=== PATIENT | male | born 1975 | race Caucasian/White ===

== ENCOUNTER 2017-08-01 12:50 | Emergency (ER) | payer BC ==
--- NOTE | 2017-08-01 13:00 | EDM.PDOC ---
ED HPI GENERAL MEDICAL PROBLEM - General Chief Complaint: ENT Problem Stated Complaint: TOOTH PAIN Time Seen by Provider: 08/01/17 12:56 Source of Information: Reports: Patient History Limitations: Reports: No Limitations - History of Present Illness INITIAL COMMENTS - FREE TEXT/NARRATIVE: HISTORY AND PHYSICAL: History of present illness: Patient is a 42-year-old male who presents to the emergency room today with complaints of left lower dental pain. 2 days ago he did have a tooth that broke to the posterior molar and since that time has been using [id number] dental putty to fill in the area. Today he tried to find a local dentist for treatment, but reports the facilities are closed. Has been using over-the- counter Tylenol and ibuprofen without any relief. Reports he does feel "feverish " but has not recorded his temperature at home. Review of systems: As per history of present illness and below otherwise all systems reviewed and negative. Past medical history: As per history of present illness and as reviewed below otherwise noncontributory. Surgical history: As per history of present illness and as reviewed below otherwise noncontributory. Social history: No reported history of drug or alcohol abuse. Family history: As per history of present illness and as reviewed below otherwise noncontributory. Physical exam: General: Well-developed and well-nourished 42-year-old male. Alert and oriented. Nontoxic appearing and in no acute distress. HEENT: Atraumatic, normocephalic, pupils reactive, negative for conjunctival pallor or scleral icterus, mucous membranes moist, throat clear, neck supple, nontender, trachea midline. Tooth #17 is cracked with OTC puddy noted, soft tissue swelling and erythema noted around the gumline. Multiple dental caries and missing teeth. Lungs: Clear to auscultation, breath sounds equal bilaterally, chest nontender. Heart: S1S2, regular rate and rhythm Abdomen: Soft, nondistended, nontender. Pelvis: Stable nontender. Genitourinary: Deferred. Rectal: Deferred. Extremities: Atraumatic, moves all per self. Neurovascular unremarkable. Neuro: Awake, alert, oriented. Cranial nerves II through XII unremarkable. Cerebellum unremarkable. Motor and sensory unremarkable throughout. Exam nonfocal. Will treat with Augmentin BID x 7 days. Tramadol (#20- NRF) for pain. Discussed follow-up with a dentist. Patient voices understanding and is agreeable to plan of care. He denies any further questions at this time. Diagnostics: [] Therapeutics: Hurricane/viscous lidocaine topical (Tooth Balls) Impression: Dentalgia Cracked tooth Plan: 1. Take the antibiotic as prescribed. The pain medication may cause drowsiness a do not take it while driving or needing to be functioning at work. Please do not take over the recommended amount of ibuprofen as this may cause stomach upset/ulcers. 2. Use the tooth balls that we have provided for you as directed. 3. As we discussed follow-up with the dentist next week. Return to the ED as needed and as discussed. Definitive disposition and diagnosis as appropriate pending reevaluation and review of above. Duration: Day(s): Location: Reports: Face left lower dental Pain Score (Numeric/FACES): 10 - Related Data Allergies Allergy/AdvReac Type Severity Reaction Status Date / Time No Known Allergies Allergy Verified 08/01/17 12:59 Home Meds: Home Meds . [No Known Home Meds] 08/01/17 [History] ED ROS ENT - Review of Systems Review Of Systems: ROS reveals no pertinent complaints other than HPI. ED EXAM, ENT - Physical Exam Exam: See Below (See dictation) Course - Vital Signs Last Recorded V/S: Last Vital Signs Temp 97.6 F 08/01/17 12:59 Pulse 76 08/01/17 12:59 Resp 18 08/01/17 12:59 BP 130/80 08/01/17 12:59 Pulse Ox 97 08/01/17 12:59 - Orders/Labs/Meds Orders: Active Orders 24 hr Category Date Time Status Benzocaine [Hurricaine One 20%] Med 08/01/17 13:27 Once 2 each MUCMEM ONETIME ONE Lidocaine 2% [Xylocaine 2% Viscous] Med 08/01/17 13:27 Once 15 ml PO ONETIME ONE Meds: Medications Discontinued Medications Generic Name Dose Route Start Last Admin Trade Name Freq PRN Reason Stop Dose Admin Benzocaine 2 each 08/01/17 13:27 Hurricaine One 20% MUCMEM 08/01/17 13:28 ONETIME ONE Lidocaine HCl 15 ml 08/01/17 13:27 Xylocaine 2% Viscous PO 08/01/17 13:28 ONETIME ONE Departure - Departure Time of Disposition: 13:34 Disposition: Home, Self-Care 01 Clinical Impression: Dentalgia - Discharge Information Referrals: PCP,None [Primary Care Provider] - Forms: ED Department Discharge Additional Instructions: My general discharge The following information is given to patients seen in the emergency department who are being discharged to home. This information is to outline your options for follow-up care. We provide all patients seen in our emergency department with a follow-up referral. The need for follow-up, as well as the timing and circumstances, are variable depending upon the specifics of your emergency department visit. If you don't have a primary care physician on staff, we will provide you with a referral. We always advise you to contact your personal physician following an emergency department visit to inform them of the circumstance of the visit and for follow-up with them and/or the need for any referrals to a consulting specialist. The emergency department will also refer you to a specialist when appropriate. This referral assures that you have the opportunity for follow-up care with a specialist. All of these measure are taken in an effort to provide you with optimal care, which includes your follow-up. Under all circumstances we always encourage you to contact your private physician who remains a resource for coordinating your care. When calling for follow-up care, please make the office aware that this follow-up is from your recent emergency room visit. If for any reason you are refused follow-up, please contact the [facility] Emergency Department at and asked to speak to the emergency department charge nurse. [facility] [address] [place] [id number] 1. Take the antibiotic as prescribed. The pain medication may cause drowsiness a do not take it while driving or needing to be functioning at work. Please do not take over the recommended amount of ibuprofen as this may cause stomach upset/ulcers. 2. Use the tooth balls that we have provided for you as directed. 3. As we discussed follow-up with the dentist next week. Return to the ED as needed and as discussed. - My Orders Last 24 Hours: My Active Orders 08/01/17 13:27 Benzocaine [Hurricaine One 20%] 2 each MUCMEM ONETIME ONE Lidocaine 2% [Xylocaine 2% Viscous] 15 ml PO ONETIME ONE - Assessment/Plan Last 24 Hours: My Active Orders 08/01/17 13:27 Benzocaine [Hurricaine One 20%] 2 each MUCMEM ONETIME ONE Lidocaine 2% [Xylocaine 2% Viscous] 15 ml PO ONETIME ONE
[2017-08-01] MEDS ORDERED: Lidocaine 2% Viscous Solution 15 ML Cup PO ONE (13:27)
[2017-08-01] MEDS ORDERED: Benzocaine 20% Topical Spray UD MUCMEM ONE (13:27)
== END 2017-08-01 13:50 | disposition home or self-care (01) ==
LOC: MW.ED 12:50
DX: K03.81 Cracked tooth (principal); K04.7 Periapical abscess without sinus
CPT/HCPCS: 99282; A9270

== ENCOUNTER 2018-03-05 10:39 | Emergency (ER) | payer BC ==
--- NOTE | 2018-03-05 10:54 | EDM.PDOC ---
ED HPI GENERAL MEDICAL PROBLEM - General Chief Complaint: Back Pain or Injury Stated Complaint: BACK PAIN Time Seen by Provider: 03/05/18 10:49 Source of Information: Reports: Patient History Limitations: Reports: No Limitations - History of Present Illness INITIAL COMMENTS - FREE TEXT/NARRATIVE: HISTORY AND PHYSICAL: []43-year-old male presents with right upper back pain History of Present Illness: []Patient has had this pain in the past has gone to chiropractors and has had some relief ,has to continue to go back Review of Systems: As per history of present illness and below otherwise all systems reviewed and negative. Past medical history: As per history of present illness and as reviewed below otherwise noncontributory. Surgical history: As per history of present illness and as reviewed below otherwise noncontributory. Social history: No reported history of drug or alcohol abuse. Family history: As per history of present illness and as reviewed below otherwise noncontributory. Physical exam: Alert and oriented male answering questions in full sentences without any shortness of breath as he walks into the examination room he is holding his right arm in a comfortable position. HEENT: Atraumatic, normocehpalic, pupils reactive, negative for conjunctival pallor or scleral icterus, mucous membranes moist, throat clear, neck supple, nontender, trachea midline. Ears some cerumen to his tympanic canals bilaterally. Lungs: Clear to auscultation, breath sounds equal bilaterally, chest non tender. Heart: S1S2, regular, negative for clicks, rubs, or JVD. Abdomen: Soft, nondistended, nontender. Negative for masses or hepatossplenmegaly. Negative for costovertebral tenderness. Back: There is erythema mild and edema to the right upper back medially from the T6 extending upward towards the scapula to the T3. Aproximately 3 cm in width. Pelvis: Stable nontender. Genitourinary: Deferred. Rectal: Deferred Extremities: Atraumatic, negative for cords or calf pain. Neurovascular unremarkable. Neuro: Awake, alert, oriented. Cranial nerves II through XII unremarkable. Cerebellum unremarkable. Motor and sensory unremarkable throughout. Exam nonfocal. Diagnostics: [] Therapeutics: [] Impression: []Upper back sprain Plan: []Discharge Moist heat alternating with ice as whichever feels better Prednisone 20 mg 3 times a day for the next 5 days to reduce the swelling and improve pain threshold Norflex twice a day Follow up with your primary care provider Return to the emergency room as directed and discussed Definitive disposition and diagnosis as appropriate pending reevaluation and review of above. Onset: Sudden Duration: Day(s):, Getting Worse Location: Reports: Back Quality: Reports: Throbbing Severity: Moderate Improves with: Reports: None Worsens with: Reports: None Associated Symptoms: Reports: No Other Symptoms - Related Data Allergies Allergy/AdvReac Type Severity Reaction Status Date / Time No Known Allergies Allergy Verified 03/05/18 10:45 Home Meds: Home Meds Orphenadrine [Norflex] 100 mg PO QID PRN #28 tab.er 03/05/18 [Rx] predniSONE [Prednisone] 20 mg PO TID #15 tablet 03/05/18 [Rx] Past Medical History - Past Health History Medical/Surgical History: Denies Medical/Surgical History Social & Family History - Family History Family Medical History: Noncontributory ED ROS GENERAL - Review of Systems Review Of Systems: ROS reveals no pertinent complaints other than HPI. ED EXAM, UPPER BACK/NECK PAIN - Physical Exam Exam: See Below (see dictation) Departure - Departure Time of Disposition: 10:54 Disposition: Home, Self-Care 01 Condition: Good Clinical Impression: Muscle strain of upper back - Discharge Information *PRESCRIPTION DRUG MONITORING PROGRAM REVIEWED*: Not Applicable *COPY OF PRESCRIPTION DRUG MONITORING REPORT IN PATIENT HAILEE: Not Applicable Prescriptions: Orphenadrine [Norflex] 100 mg PO QID PRN #28 tab.er PRN Reason: Muscle Spasm predniSONE [Prednisone] 20 mg PO TID #15 tablet Instructions: Muscle Strain, [id number] Referrals: PCP,None [Primary Care Provider] - Additional Instructions: The following information is given to patients seen in the emergency department who are being discharged to home. This information is to outline your options for follow-up care. We provide all patients seen in our emergency department with a follow-up referral. The need for follow-up, as well as the timing and circumstances, are variable depending upon the specifics of your emergency department visit. If you don't have a primary care physician on staff, we will provide you with a referral. We always advise you to contact your personal physician following an emergency department visit to inform them of the circumstance of the visit and for follow-up with them and/or the need for any referrals to a consulting specialist. The emergency department will also refer you to a specialist when appropriate. This referral assures that you have the opportunity for followup care with a specialist. All of these measure are taken in an effort to provide you with optimal care, which includes your followup. Under all circumstances we always encourage you to contact your private physician who remains a resource for coordinating your care. When calling for followup care, please make the office aware that this follow-up is from your recent emergency room visit. If for any reason you are refused follow-up, please contact the [facility] emergency department at and asked to speak to the emergency department charge nurse. heat alternating with ice (whichever feels better) Prednisone 20 mg 3 times a day for the next 5 days to reduce the swelling and improve pain threshold Norflex twice a day Follow up with your primary care provider Return to the emergency room as directed and discussed
== END 2018-03-05 11:04 | disposition home or self-care (01) ==
LOC: MW.ED 10:39
DX: S23.3XXA Sprain of ligaments of thoracic spine, initial encounter (principal); Z79.899 Other long term (current) drug therapy; X58.XXXA Exposure to other specified factors, initial encounter
CPT/HCPCS: 99283

== ENCOUNTER 2022-12-02 07:08 | Emergency (ER) | payer MEDICAID ==
[2022-12-02] MEDS ORDERED: Cyclobenzaprine 10 MG Tab PO ONE (07:26)
[2022-12-02] MEDS ORDERED: Lidocaine 4% 1 each Patch TOP PRN ×3 (07:27→07:41)
[2022-12-02] MEDS ORDERED: Ketorolac 30 MG/ML SDV IM ONE (07:28)
[2022-12-02 08:16] LABS: APPEARANCE,URINE CLEAR; BILIRUBIN,URINE NEGATIVE (NEGATIVE); COLOR,URINE YELLOW; GLUCOSE,URINE NEGATIVE (NEGATIVE); KETONES,URINE NEGATIVE (NEGATIVE); LEUKOCYTE ESTERASE,URINE NEGATIVE (NEGATIVE); NITRITE,URINE NEGATIVE (NEGATIVE); OCCULT BLOOD,URINE NEGATIVE (NEGATIVE); PH,URINE 5.5 (5.0-8.0); PROTEIN,URINE NEGATIVE (NEGATIVE); UROBILINOGEN,URINE 0.2 EU/dL (<2.0)
[2022-12-02 08:21] LABS: BACTERIA,URINE RARE (NEGATIVE); EPITHELIAL CELLS,URINE NOT SEEN (NONE-FEW); RBC,URINE NONE SEEN (0-2/HPF); WBC,URINE 0-1 (0-5/HPF)
[2022-12-03] MEDS ORDERED: Lidocaine 4% 1 each Patch TOP PRN (11:52)
== END 2022-12-02 08:46 | disposition home or self-care (01) ==
LOC: MW.ED 07:08
DX: M54.50 Low back pain, unspecified (principal)
CPT/HCPCS: 81001; 96372; 99283; A9270; J1885